=== PATIENT | male | born 1940 | race American Indian/Alaskan Native ===

== ENCOUNTER 2018-07-11 18:41 | Emergency (ER) | payer MEDICARE, OTHER ==
--- NOTE | 2018-07-11 20:52 | Emergency Department Report ---
ED Eye Problem HPI - General Chief complaint: Eye Problems Stated complaint: RT EYE RED/PAIN Time Seen by Provider: 07/11/18 18:45 Source: patient Mode of arrival: Ambulatory Limitations: No Limitations - History of Present Illness Initial comments: Patient is a 78-year-old male who presents to the ED with complaints of right eye redness and irritation that began 3 days ago. He states that it feels itchy. He says he has only had clear drainage from the right eye. He denies any crusting present or matting of the eyelashes. Patient states he gets seasonal allergies. He denies anything going into the eye. He denies any foreign body sensation. chief complaint: eye redness Onset/Timin -: days(s) Onset Description: gradual Location: right eye If Injury: none Eye Symptoms: redness, itching, discharge (clear ) Severity: mild Context: recent uri Associated Symptoms: none Treatments Prior to Arrival: none - Related Data Previous Rx's Medication Instructions Recorded Last Taken Type Cetirizine HCl [ZyrTEC] 10 mg PO DAILY #30 tab.rapdis 07/11/18 Unknown Rx Ketotifen Fumarate [Zaditor] 5 ml OP BID #60 drops 07/11/18 Unknown Rx Allergies Allergy/AdvReac Type Severity Reaction Status Date / Time No Known Allergies Allergy Unverified 07/11/18 18:42 ED Review of Systems ROS: Stated complaint: RT EYE RED/PAIN Other details as noted in HPI Comment: All other systems reviewed and negative ED Past Medical Hx - Past Medical History Previous Medical History?: No - Surgical History Past Surgical History?: No - Social History Smoking Status: Never Smoker Substance Use Type: None - Medications Home Medications: Home Medications Medication Instructions Recorded Confirmed Last Taken Type Cetirizine HCl [ZyrTEC] 10 mg PO DAILY #30 tab.rapdis 07/11/18 Unknown Rx Ketotifen Fumarate [Zaditor] 5 ml OP BID #60 drops 07/11/18 Unknown Rx ED Physical Exam - General Limitations: No Limitations General appearance: alert, in no apparent distress - Head Head exam: Present: atraumatic, normocephalic - Eye Eye exam: Present: PERRL, EOMI, conjunctival injection (small amount of conjunctival injection to the right eye, no pulurent drainge, no matting of the eyelashes), other (ptyergium present to bilateral eyes not encroaching into pupil, does not affect vision). Absent: scleral icterus, periorbital swelling, periorbital tenderness Pupils: Present: normal accommodation - ENT ENT exam: Present: mucous membranes moist - Respiratory Respiratory exam: Absent: respiratory distress - Cardiovascular Cardiovascular Exam: Present: regular rate - Neurological Exam Neurological exam: Present: alert, oriented X3 - Psychiatric Psychiatric exam: Present: normal affect, normal mood ED Course Vital Signs 07/11/18 07/11/18 18:46 21:05 Temperature 99.2 F 98.7 F Pulse Rate 78 68 Respiratory 16 16 Rate Blood Pressure 190/89 204/89 [Left] O2 Sat by Pulse 97 97 Oximetry ED Medical Decision Making - Medical Decision Making Patient is a 78-year-old male who presents to the ED with complaints of right eye redness, itching, irritation. He denies anything getting into the eye or any foreign body sensation. Will give patient prescription for allergic conjunctivitis and Zyrtec for seasonal allergies. Advised patient to follow up with his eye doctor. Discussed with pt that if pterygium begins to cause issues with vision then to speak with his eye doctor. Spoke with pt at length regarding the elevation in his blood pressure, pt states he has not been taking his medication because he has been taking cough and cold medication, pt is unsure the name of his blood pressure medication, I advised pt about certain cold medications that he should not take with high blood pressure, offered to give pt something for his BP while in the ED, pt declined, pt states he would like to take his medication once he gets home, he states he will use his at home cuff to take his BP, advised pt that once he takes his BP at home and it is still elevated after taking his medication then to return to the ED immediately, also advised to follow up with his PCP su to have a blood pressure recheck and for any adjustments of his medications Critical care attestation.: If time is entered above; I have spent that time in minutes in the direct care of this critically ill patient, excluding procedure time. ED Disposition Clinical Impression: Seasonal allergies Conjunctivitis Qualifiers: Conjunctivitis type: unspecified Laterality: right Qualified Code(s): H10.9 - Unspecified conjunctivitis Pterygium Qualifiers: Laterality: bilateral Qualified Code(s): H11.003 - Unspecified pterygium of eye, bilateral Disposition: DC-01 TO HOME OR SELFCARE Is pt being admited?: No Does the pt Need Aspirin: No Condition: Stable Instructions: Conjunctivitis (ED), Allergies (ED) Additional Instructions: Follow up with your eye doctor. Follow up with your PCP as soon as possible due to elevated blood pressure while in the ED for further evaluation and medication changes. Return to the emergency room if any new or worsening symptoms Prescriptions: Ketotifen Fumarate [Zaditor] 5 ml OP BID #60 drops Cetirizine HCl [ZyrTEC] 10 mg PO DAILY #30 tab.rapdis [facility] [Primary Care Provider] - 3-5 Days Time of Disposition: 20:51 Print Language: FINNISH
[2018-07-11 21:13] VITALS: BP 204/89
== END 2018-07-11 21:11 | disposition home or self-care (01) ==
LOC: ED 18:41
DX: H10.9 Unspecified conjunctivitis (principal); H11.001 Unspecified pterygium of right eye; J30.2 Other seasonal allergic rhinitis
CPT/HCPCS: 99282